=== PATIENT | male | born 1950 | race Caucasian/White ===

== ENCOUNTER 2021-08-07 00:50 | Emergency (ER) | payer MEDICARE, OTHER ==
[2021-08-07 02:03] VITALS: BP 137/85; PULSE 88; O2SAT 94
--- NOTE | 2021-08-07 02:18 | ERPHSYRPT ---
- History of Present Illness Time Seen by Provider: 08/07/21 01:10 Source: patient Exam Limitations: no limitations Patient Subjective Stated Complaint: pt states "I had a surgery on Sunday and my fingers are numb and achy ever since." Triage Nursing Assessment: pt came into the er via wheelchair; pt is axo x4; c/o pain and numbness to 4th and 5th digit of rt hand; pt states hx of rotator cuff repair on 08/02; pt sates 9/ pain to rt hand; pt has strong rt radial pulse; good cap refill to RUE; hypertension Physician History: This is a right-handed 71-year-old white male who underwent a rotator cuff surgery on his right shoulder on 08/02/2021. Postoperatively he was placed in a heavy orthopedic sling. Since that time he states he has noticed numbness in digits 4 and 5 on the right side. He only takes the orthopedic sling off to do the dressing change. Then it is right back on in place. Patient starts physical therapy and rehabilitation in the right shoulder tomorrow, 08/08/2021. Occurred: days ago (5) Method of Injury: other (Postoperative) Quality: constant, aching (Digits 4 and 5 on the right hand), other (Numbness on right hand digits 4 and 5) Severity of Pain-Max: moderate Severity of Pain-Current: mild (To moderate) Extremities Pain Location: 4th finger: right, 5th finger: right Modifying Factors: Improves With: other (Improves when sling is off) Associated Symptoms: none Allergies/Adverse Reactions: hydrocodone Allergy (Verified 08/07/21 01:00) Home Medications: Tramadol HCl 50 mg [Ultram 50 mg] 50 mg PO Q4H PRN 08/07/21 [History] ondansetron HCL [Zofran] 8 mg PO BID 08/07/21 [History] Hx Tetanus, Diphtheria Vaccination/Date Given: Yes Hx Influenza Vaccination/Date Given: No Hx Pneumococcal Vaccination/Date Given: No Travel Risk - International Travel Have you traveled outside of the country in past 3 weeks: No - Coronavirus Screening Are you exhibiting any of the following symptoms?: No Close contact with a COVID-19 positive Pt in past 14-21 Days: No - Vaccine Status Have you recieved a Covid-19 vaccination: No - Review of Systems Constitutional: No Symptoms Eyes: No Symptoms Ears, Nose, & Throat: No Symptoms Respiratory: No Symptoms Cardiac: No Symptoms Abdominal/Gastrointestinal: No Symptoms Genitourinary Symptoms: No Symptoms Musculoskeletal: Other (Numbness and achiness to right hand digits 4 and 5) Skin: No Symptoms Neurological: No Symptoms Psychological: No Symptoms Endocrine: No Symptoms Hematologic/Lymphatic: No Symptoms Immunological/Allergic: No Symptoms All Other Systems: Reviewed and Negative - Past Medical History Pertinent Past Medical History: No Neurological History: No Pertinent History ENT History: No Pertinent History Cardiac History: No Pertinent History Respiratory History: No Pertinent History Endocrine Medical History: No Pertinent History Musculoskeletal History: No Pertinent History GI Medical History: No Pertinent History History: No Pertinent History Psycho-Social History: No Pertinent History Male Reproductive Disorders: No Pertinent History - Past Surgical History Past Surgical History: Yes Neuro Surgical History: No Pertinent History Cardiac: No Pertinent History Respiratory: No Pertinent History Gastrointestinal: No Pertinent History Genitourinary: No Pertinent History Musculoskeletal: Orthopedic Surgery Male Surgical History: No Pertinent History Other Surgical History: rotator cuff repair to rt shoulder - Social History Smoking Status: Former smoker Exposure to second hand smoke: Yes Drug Use: none Patient Lives Alone: No - Nursing Vital Signs Nursing Vital Signs: Initial Vital Signs Temperature 97.9 F 08/07/21 01:01 Pulse Rate 92 H 08/07/21 01:01 Respiratory Rate 18 08/07/21 01:01 Blood Pressure 154/97 08/07/21 01:01 O2 Sat by Pulse Oximetry 93 L 08/07/21 01:01 Pain Scale Pain Intensity [Right Hand] 9 Pain Intensity 9 - Physical Exam General Appearance: no apparent distress, alert, anxiety Eyes, Ears, Nose, Throat Exam: normal ENT inspection, moist mucous membranes Neck Exam: normal inspection, non-tender, supple, full range of motion Cardiovascular/Respiratory Exam: chest non-tender, no respiratory distress Abdominal Exam: non-tender Back Exam: normal inspection, normal range of motion, No CVA tenderness, No vertebral tenderness Shoulder Exam: normal inspection, limited ROM (Patient is postoperative rotator cuff surgery. Bandage is in place. Bandages clean) Elbow/Forearm Exam: normal inspection, non-tender, no evidence of injury, limited ROM (Secondary to post operative rotator cuff surgery. With sling off patient has improvement in his range of motion and decreased numbness and achiness in digits 4 and 5 on the right side) Wrist Exam: normal inspection, non-tender, no evidence of injury, normal ROM Hand Exam: normal inspection, no evidence of injury, normal ROM Neuro/Tendon Exam: normal sensation, normal motor functions, normal tendon functions, responds to pain, no evidence tendon injury, No motor deficit, No sensory deficit Mental Status Exam: alert, oriented x 3, cooperative Skin Exam: normal color, warm, dry SpO2 Interpretation: borderline oxygenation SpO2: 94 O2 Delivery: Room Air - Course Nursing assessment & vital signs reviewed: Yes Ordered Tests: Active Orders 24 hr Category Date Time Status SHOULDER Stat Exams 08/07/21 Taken - Progress Progress: improved, pain not gone completely Progress Note: 08/07/21 02:18 Right shoulder postoperative x-ray shows no acute fracture or dislocation. The postsurgical film shows the joint to be intact. Counseled pt/family regarding: diagnosis, need for follow-up, rad results - Departure Departure Disposition: Home Clinical Impression: Ulnar nerve compression Condition: Stable Critical Care Time: No Referrals: TOSHIA ENRIQUE [Primary Care Provider] - Follow up/PCP as directed Additional Instructions: Keep the orthopedic sling in place when up and ambulating about. If sitting or laying down, remove the orthopedic sling flex and extend at the elbow. Take your medication as prescribed. Keep your physical therapy appointment tomorrow, 08/08/2021. Call your orthopedic surgeon tomorrow, 08/08/2021 if symptoms persist or worsen.
--- NOTE | 2021-08-07 07:28 | XRAY ---
Indication: Postoperative pain. Comparison: June 23, 2021. 3 view right shoulder again demonstrates osteopenia and moderate AC degenerative arthropathy. New tiny subcutaneous emphysema presumed postoperative. No other bony, articular, or soft tissue abnormalities. Comment: Preliminary interpretation made by C. No critical discrepancy.
== END 2021-08-07 02:30 | disposition home or self-care (01) ==
LOC: ED 00:50
DX: G56.21 Lesion of ulnar nerve, right upper limb (principal); X50.1XXA Overexertion from prolonged static or awkward postures, initial encounter; Z79.891 Long term (current) use of opiate analgesic; Z98.890 Other specified postprocedural states
CPT/HCPCS: 73030; 99283

== ENCOUNTER 2021-12-08 15:44 | Emergency (ER) | payer MEDICARE, OTHER ==
[2021-12-08] MEDS ORDERED: Zofran 4 MG/2 ML VIAL IV ONE (16:38)
[2021-12-08] MEDS ORDERED: GI COCKTAIL 45 ML (Maalox/Lidocaine) PO ONE (16:39)
[2021-12-08 16:44] LABS: Hematocrit 44.3 % (42-50); Hemoglobin 15.2 g/dL (12.5-18.0); Mean Cell Volume 90.4 fL (78-100); Mean Corpuscular Hgb Concent. 34.3 g/dL (32-36); Mean Platelet Volume 12.1 fL (7.5-11.0); Platelet Count 203 x10^3/uL (150-450); Red Cell Distribution Width 12.8 % (11.5-14.0); White Blood Count 7.8 x10^3/uL (4.0-10.5)
[2021-12-08 16:46] LABS: Appearance CLOUDY (CLEAR); Bilirubin NEGATIVE (NEGATIVE); Glucose NEGATIVE (NEGATIVE); Ketones TRACE (NEGATIVE); Ph 8.5 (5-6); RBC NEGATIVE Ery/ul (0-5)
[2021-12-08 16:47] LABS: Dipstick done @ ? MAIN LAB; Nitrite NEGATIVE (NEGATIVE); Protein,Urine Dip 30 (Negative); Urobilinogen 0.2 mg/dL (0-1)
--- NOTE | 2021-12-08 16:47 | ERPHSYRPT ---
- History of Present Illness Time Seen by Provider: 12/08/21 16:10 Historian: patient Exam Limitations: no limitations Patient Subjective Stated Complaint: C/O N/V and abdominal pain X 2 days Triage Nursing Assessment: Patient ambulated back to ED. He is hard of heaing, alert and oriented. Patient noted to be dry-heaving during assessment with no emesis noted. No SOB noted. Faint bowel sounds noted. Denies increased or changed pain with palpation. Pain is located mid abdomen above umbilicus. Physician History: Patient is a 71-year-old male presents to our ED for evaluation of nausea vomiting and epigastric pain x2 days. Pain described as a burning sensation that is constant. Patient states he ate tomatoes and worsens in symptoms. No trauma. No fever. Patient denies chest pain. Patient is nauseous at this time. Patient mildly tolerant of hearing. Patient states his gallbladder is still intact as is his appendix. Patient denies history of the same. Symptoms are mild to moderate in intensity. Patient voices no other complaints at this time. Portions of this note were created with voice recognition technology. There may be grammatical, spelling, punctuation or sound alike errors Timing/Duration: day(s) (2 days) Activities at Onset: none Quality: aching Abdominal Pain Onset Location: epigastric Pain Radiation: no radiation Severity of Pain-Max: moderate Severity of Pain-Current: mild Modifying Factors: Improves With: other (Pain worse after meals) Associated Symptoms: nausea, vomiting Previous symptoms: no prior history Allergies/Adverse Reactions: hydrocodone Allergy (Verified 12/08/21 15:59) Hx Tetanus, Diphtheria Vaccination/Date Given: Yes Hx Influenza Vaccination/Date Given: No Hx Pneumococcal Vaccination/Date Given: No Immunizations Up to Date: Yes Travel Risk - International Travel Have you traveled outside of the country in past 3 weeks: No - Coronavirus Screening Are you exhibiting any of the following symptoms?: Yes Symptoms: Vomiting/Diarrhea Close contact with a COVID-19 positive Pt in past 14-21 Days: No - Vaccine Status Have you recieved a Covid-19 vaccination: No - Review of Systems Constitutional: No Symptoms, No Fever, No Chills Eyes: No Symptoms Ears, Nose, & Throat: No Symptoms Respiratory: No Symptoms, No Cough, No Dyspnea Cardiac: No Symptoms, No Chest Pain, No Edema, No Syncope Abdominal/Gastrointestinal: No Symptoms, No Abdominal Pain, No Nausea, No Vomiting, No Diarrhea Genitourinary Symptoms: No Symptoms, No Dysuria Musculoskeletal: No Symptoms, No Back Pain, No Neck Pain Skin: No Symptoms, No Rash Neurological: No Symptoms, No Dizziness, No Focal Weakness, No Sensory Changes Psychological: No Symptoms Endocrine: No Symptoms Hematologic/Lymphatic: No Symptoms Immunological/Allergic: No Symptoms All Other Systems: Reviewed and Negative - Past Medical History Pertinent Past Medical History: No Neurological History: No Pertinent History ENT History: No Pertinent History Cardiac History: No Pertinent History Respiratory History: No Pertinent History Endocrine Medical History: No Pertinent History Musculoskeletal History: No Pertinent History GI Medical History: No Pertinent History History: No Pertinent History Psycho-Social History: No Pertinent History Male Reproductive Disorders: No Pertinent History - Past Surgical History Past Surgical History: Yes Neuro Surgical History: No Pertinent History Cardiac: No Pertinent History Respiratory: No Pertinent History Gastrointestinal: No Pertinent History Genitourinary: No Pertinent History Musculoskeletal: Orthopedic Surgery Male Surgical History: No Pertinent History Other Surgical History: rotator cuff repair to rt shoulder - Social History Smoking Status: Former smoker Exposure to second hand smoke: Yes Drug Use: none Patient Lives Alone: No - Nursing Vital Signs Nursing Vital Signs: Initial Vital Signs Temperature 97.7 F 12/08/21 16:00 Pulse Rate 83 12/08/21 16:00 Respiratory Rate 15 12/08/21 16:00 Blood Pressure 176/104 12/08/21 16:00 O2 Sat by Pulse Oximetry 94 L 12/08/21 16:00 Pain Scale Pain Intensity 6 - Physical Exam General Appearance: no apparent distress, alert Eye Exam: PERRL/EOMI, eyes nml inspection Ears, Nose, Throat Exam: normal ENT inspection, pharynx normal, moist mucous membranes Neck Exam: normal inspection, non-tender, supple, full range of motion Respiratory Exam: normal breath sounds, lungs clear, airway intact, No respiratory distress Cardiovascular Exam: regular rate/rhythm, normal heart sounds, normal peripheral pulses Gastrointestinal/Abdomen Exam: soft, tenderness (Epigastric tenderness to palpation.), No mass, No guarding, No ecchymosis, No splenomegaly, No bruit Back Exam: normal inspection, normal range of motion, No CVA tenderness, No vertebral tenderness Extremity Exam: normal inspection, normal range of motion, pelvis stable Neurologic Exam: alert, oriented x 3, cooperative, normal mood/affect, sensation nml, No motor deficits Skin Exam: normal color, warm, dry Lymphatic Exam: No adenopathy SpO2 Interpretation: normal SpO2: 94 O2 Delivery: Room Air - Course Nursing assessment & vital signs reviewed: Yes EKG Interpreted by Me: RATE (71), Sinus Rhythm, NORMAL AXIS, NORMAL INTERVALS - CT Exams Abdomen/Pelvis CT Interpretation: Tele-radiologist Report (Diffuse) Ordered Tests: Active Orders 24 hr Category Date Time Status EKG-ER Only STAT Care 12/08/21 16:38 Active IV Insertion STAT Care 12/08/21 16:38 Active ABDOMEN AND PELVIS W/0 CONTRAS [CT] Stat Exams 12/08/21 16:39 Completed CBC W DIFF Stat Lab 12/08/21 16:07 Completed CMP Stat Lab 12/08/21 16:38 Completed LIPASE Stat Lab 12/08/21 16:38 Completed Manual Differential NC Stat Lab 12/08/21 16:07 Completed TROPONIN Q4H Lab 12/08/21 16:45 Completed TROPONIN Q4H Lab 12/08/21 20:45 Ordered TROPONIN Q4H Lab 12/09/21 00:45 Ordered UA W/RFX CULTURE Stat Lab 12/08/21 16:00 Completed Medication Summary Discontinued Medications Generic Name Dose Route Start Last Admin Trade Name Freq PRN Reason Stop Dose Admin Al Hydrox/Mg Hydrox/Simethicone Confirm 12/08/21 16:55 Mag Hydrox/Al Hydrox/Simeth 30 Ml Udcup Administered 12/08/21 16:56 Dose 30 ml .ROUTE .STK-MED ONE Lidocaine HCl Confirm 12/08/21 16:55 Lidocaine Hcl 2% Viscous 15 Ml Udcup Administered 12/08/21 16:56 Dose 15 ml .ROUTE .STK-MED ONE Magnesium Hydroxide 45 ml 12/08/21 16:39 12/08/21 16:57 Mag Hydrx/Alum Hyd/Simeth/Lido 45 Ml Bottle PO 12/08/21 16:40 45 ml STAT ONE Administration Ondansetron HCl 4 mg 12/08/21 16:38 12/08/21 16:56 Ondansetron Hcl 4 Mg/2 Ml Vial IV 12/08/21 16:39 4 mg STAT ONE Administration Ondansetron HCl Confirm 12/08/21 16:53 Ondansetron Hcl 4 Mg/2 Ml Vial Administered 12/08/21 16:54 Dose 4 mg .ROUTE .STK-MED ONE Pantoprazole Sodium 40 mg 12/08/21 20:07 12/08/21 20:11 Pantoprazole 40 Mg Vial IV 12/08/21 20:08 40 mg STAT ONE Administration Pantoprazole Sodium Confirm 12/08/21 20:10 Pantoprazole 40 Mg Vial Administered 12/08/21 20:11 Dose 40 mg IV .STK-MED ONE Lab/Rad Data: Laboratory Result Diagrams 12/08/21 16:07 12/08/21 16:38 Laboratory Results 12/08/21 12/08/21 12/08/21 Range/Units 16:45 16:38 16:07 WBC 7.8 (4.0-10.5) x10^3/uL RBC 4.90 (4.1-5.6) x10^6/uL Hgb 15.2 (12.5-18.0) g/dL Hct 44.3 (42-50) % MCV 90.4 (78-100) fL MCH 31.0 (26-32) pg MCHC 34.3 (32-36) g/dL RDW 12.8 (11.5-14.0) % Plt Count 203 (150-450) x10^3/uL MPV 12.1 H (7.5-11.0) fL Segmented Neutrophils 70 H (36.-66.) % Band Neutrophils 4 H (0.0-2.0) % Lymphocytes (Manual) 13 L (24-44) % Monocytes (Manual) 8 (0.0-12.0) % Nucleated RBCs 1 % Atypical Lymphocytes 5 % Platelet Estimate NORMAL (NORMAL) RBC Morphology NORMAL Sodium 137 (137-145) mmol/L Potassium 3.8 (3.5-5.1) mmol/L Chloride 96 L (98-107) mmol/L Carbon Dioxide 32 H (22-30) mmol/L Anion Gap 12.9 (5-15) MEQ/L BUN 13 (9-20) mg/dL Creatinine 0.79 (0.66-1.25) mg/dL Estimated GFR > 60.0 ML/MIN Glucose 135 H (74-106) mg/dL Calcium 9.8 (8.4-10.2) mg/dL Total Bilirubin 0.70 (0.2-1.3) mg/dL AST 43 (17-59) U/L ALT 38 (0-50) U/L Alkaline Phosphatase 135 H (38-126) U/L Troponin I 0.013 (0.000-0.034) ng/mL Serum Total Protein 8.2 (6.3-8.2) g/dL Albumin 4.5 (3.5-5.0) g/dL Lipase 117 (23-300) U/L Urinalys Dipstick Clnc Urine Color (YELLOW) Urine Appearance (CLEAR) Urine pH (5-6) Ur Specific Noble (1.005-1.025) POC Urine Protein Conf (Negative) Urine Ketones (NEGATIVE) Urine Nitrite (NEGATIVE) Urine Bilirubin (NEGATIVE) Urine Urobilinogen (0-1) mg/dL Urine Leukocytes (NEGATIVE) Urine WBC (Auto) (0-5) /HPF Urine RBC (Auto) U Epithel Cells (Auto) Urine Bacteria (Auto) (NEGATIVE) /HPF Urine RBC (0-5) Neto/ul Amorphous Crystals (NEGATIVE) /HPF Urine Mucus (Auto) (NEGATIVE) /HPF Ur Culture Indicated? Urine Glucose (NEGATIVE) mg/dL 12/08/21 Range/Units 16:00 WBC (4.0-10.5) x10^3/uL RBC (4.1-5.6) x10^6/uL Hgb (12.5-18.0) g/dL Hct (42-50) % MCV (78-100) fL MCH (26-32) pg MCHC (32-36) g/dL RDW (11.5-14.0) % Plt Count (150-450) x10^3/uL MPV (7.5-11.0) fL Segmented Neutrophils (36.-66.) % Band Neutrophils (0.0-2.0) % Lymphocytes (Manual) (24-44) % Monocytes (Manual) (0.0-12.0) % Nucleated RBCs % Atypical Lymphocytes % Platelet Estimate (NORMAL) RBC Morphology Sodium (137-145) mmol/L Potassium (3.5-5.1) mmol/L Chloride (98-107) mmol/L Carbon Dioxide (22-30) mmol/L Anion Gap (5-15) MEQ/L BUN (9-20) mg/dL Creatinine (0.66-1.25) mg/dL Estimated GFR ML/MIN Glucose (74-106) mg/dL Calcium (8.4-10.2) mg/dL Total Bilirubin (0.2-1.3) mg/dL AST (17-59) U/L ALT (0-50) U/L Alkaline Phosphatase (38-126) U/L Troponin I (0.000-0.034) ng/mL Serum Total Protein (6.3-8.2) g/dL Albumin (3.5-5.0) g/dL Lipase (23-300) U/L Urinalys Dipstick Clnc MAIN LAB Urine Color YELLOW (YELLOW) Urine Appearance CLOUDY (CLEAR) Urine pH 8.5 (5-6) Ur Specific Noble 1.020 (1.005-1.025) POC Urine Protein Conf 30 (Negative) Urine Ketones TRACE (NEGATIVE) Urine Nitrite NEGATIVE (NEGATIVE) Urine Bilirubin NEGATIVE (NEGATIVE) Urine Urobilinogen 0.2 (0-1) mg/dL Urine Leukocytes NEGATIVE (NEGATIVE) Urine WBC (Auto) 3-5 (0-5) /HPF Urine RBC (Auto) Not Reportable U Epithel Cells (Auto) Not Reportable Urine Bacteria (Auto) FEW (NEGATIVE) /HPF Urine RBC NEGATIVE (0-5) Neto/ul Amorphous Crystals FEW (NEGATIVE) /HPF Urine Mucus (Auto) SLIGHT (NEGATIVE) /HPF Ur Culture Indicated? NO Urine Glucose NEGATIVE (NEGATIVE) mg/dL - Progress Progress: improved Progress Note: Case discussed with Dr. Carrillo. We will discharge patient home. Patient is requesting discharge. It appears patient is experiencing gastritis possible esophagitis possibly related to GERD. Patient received a GI cocktail which seemed to improve his pain for approximately an hour. Patient received a dose of Protonix in our ED. A prescription for the same was forwarded to patient's pharmacy. Patient will need an outpatient EGD. Dr. Carrillo will follow up for further evaluation and treatment. Plan of care discussed with patient. Patient agrees to follow-up with Dr. Carrillo within 48 hours for evaluation. Patient voices no other complaint or concerns at this time. Portions of this note were created with voice recognition technology. There may be grammatical, spelling, punctuation or sound alike errors 12/08/21 20:[address] Norma Will see patient in: hospital (observation) Counseled pt/family regarding: lab results, diagnosis, need for follow-up, rad results - Departure Departure Disposition: Home Clinical Impression: Right infrahilar lymphadenopathy, Epigastric pain, Hiatal hernia, Diverticulosis, Prostate enlargement, Nephrolithiasis, Osteopenia, Arthritis, lumbar spine, Levoscoliosis, Granulomatous disease Condition: Stable Critical Care Time: No Referrals: TOSHIA ENRIQUE [Primary Care Provider] - Follow up/PCP as directed Instructions: Severe Abdominal Pain, Adult (DC), Hiatal Hernia (DC) Additional Instructions: Discharge/Care Plan JEROMY MELENDEZ was seen on 12/08/21 in the Emergency Room. The patient was counseled regarding Diagnosis,Lab results, Imaging studies, need for follow up and when to return to the Emergency Room. Prescriptions given: Discharge Note I have spoken with the patient and/or caregivers. I have explained the patient's condition, diagnosis and treatment plan based on the information available to me at this time. I have answered the patient's and/or caregiver's questions and addressed any concerns. The patient and/or caregivers have as good understanding of the patient's diagnosis, condition and treatment plan as can be expected at this point. The vital signs have been stable. The patient's condition is stable and appropriate for discharge from the emergency department. The patient will pursue further outpatient evaluation with the primary care physician or other designated or consulting physician as outlined in the discharge instructions. The patient and/or caregivers are agreeable to this plan of care and follow-up instructions have been explained in detail. The patient and/or caregivers have received these instruction. The patient/and or caregivers are aware that any significant change in condition or worsening of symptoms should prompt an immediate return to this or the closest emergency department or call 911. Prescriptions: PANTOPRAZOLE 40 mg Tablet [Protonix 40MG Tablet] 40 mg PO DAILY 14 Days #14 tab
[2021-12-08 16:48] LABS: Amourphous Crystal FEW /HPF (NEGATIVE); Bacteria FEW /HPF (NEGATIVE); Mucus SLIGHT /HPF (NEGATIVE); Urine Cultured Indicated? NO
[2021-12-08 16:53] LABS: ALBUMIN 4.5 g/dL (3.5-5.0); ALKALINE PHOSPHATASE 135 U/L (38-126); ANION GAP 12.9 MEQ/L (5-15); BLOOD UREA NITROGEN 13 mg/dL (9-20); CHLORIDE 96 mmol/L (98-107); Calcium 9.8 mg/dL (8.4-10.2); Carbon Dioxide 32 mmol/L (22-30); Creatinine 1 0.79 mg/dL (0.66-1.25); EST GLOMERULAR FILTRATION RATE > 60.0 ML/MIN; Glucose 135 mg/dL (74-106); LIPASE 117 U/L (23-300); Potassium 3.8 mmol/L (3.5-5.1); SGOT/AST 43 U/L (17-59); SGPT/ALT 38 U/L (0-50); SODIUM 137 mmol/L (137-145); Total Protein 8.2 g/dL (6.3-8.2)
[2021-12-08] MEDS ORDERED: Zofran 4 MG/2 ML VIAL ONE (16:53)
[2021-12-08] MEDS ORDERED: MAALOX ES 30 ML UNIT DOSE ONE (16:55)
[2021-12-08] MEDS ORDERED: XYLOCAINE VISCOUS 2% 15 ML CUP ONE (16:55)
--- NOTE | 2021-12-08 17:16 | XRAY ---
Indication: Abdomen/epigastric pain. Multiple contiguous axial images obtained through the abdomen and pelvis without contrast. Comparison: None Study is degraded by respiration artifact throughout. Lung bases demonstrates mild subsegmental atelectasis/scarring. Heart not enlarged with chunky right infrahilar calcified nodes. Small fluid-filled hiatal hernia presumed from gastroesophageal reflux. Noncontrasted stomach and bowel loops appear nonobstructed with normal appendix. Scattered sigmoid diverticulosis without diverticulitis. Markedly enlarged prostate gland impresses on the base of the bladder. No free fluid/air. Right kidney demonstrates nonobstructing punctate calculus/calcification. Incidental tiny hepatic/splenic calcific granulomas. Remaining liver, gallbladder, pancreas, spleen, adrenal glands, kidneys, ureters, and bladder are unremarkable for noncontrast exam. Moderate scattered aortoiliac calcifications without AAA. Osseous structures demonstrates osteopenia, mild/moderate degenerative changes throughout the thoracolumbar spine, and mild levorotoscoliosis centered at L4. Impression: 1. Diffuse respiration artifact. 2. Small fluid-filled hiatal hernia presumed from gastroesophageal reflux. 3. Chronic findings including markedly enlarged prostate gland, nonobstructing right renal punctate calculus/calcification, arteriosclerotic disease, chronic bony findings, and old granulomatous disease.
[2021-12-08 17:38] LABS: ATYPICAL LYMPHS 5 %; BAND 4 % (0.0-2.0); Lymphocytes 13 % (24-44); Monocyte 8 % (0.0-12.0); Nucleated Red Blood Cell 1 %; Platelet Estimate NORMAL (NORMAL); Total Cells Counted 100
[2021-12-08 20:04] VITALS: BP 154/84; PULSE 91
[2021-12-08] MEDS ORDERED: PROTONIX 40 MG IV IV ONE ×2 (20:07→20:10)
[2021-12-08 20:08] VITALS: O2SAT 94
== END 2021-12-08 20:31 | disposition home or self-care (01) ==
LOC: ED 15:44
DX: R59.0 Localized enlarged lymph nodes (principal); R10.13 Epigastric pain; K44.9 Diaphragmatic hernia without obstruction or gangrene; K57.90 Diverticulosis of intestine, part unspecified, without perforation or abscess without bleeding; N40.0 Benign prostatic hyperplasia without lower urinary tract symptoms; N20.0 Calculus of kidney; M85.80 Other specified disorders of bone density and structure, unspecified site; M47.816 Spondylosis without myelopathy or radiculopathy, lumbar region; M41.9 Scoliosis, unspecified; D71 Functional disorders of polymorphonuclear neutrophils; R11.2 Nausea with vomiting, unspecified; Z28.310 Unvaccinated for COVID-19
CPT/HCPCS: 36000; 36415; 74176; 80053; 81015; 83690; 84484; 85025; 93005; 96374; 96375; 99284; J2405; A9270-GY

== ENCOUNTER 2022-01-08 16:59 | Emergency (ER) | payer MEDICARE, OTHER ==
--- NOTE | 2022-01-08 17:37 | ERPHSYRPT ---
- History of Present Illness Time Seen by Provider: 01/08/22 17:03 Source: patient Exam Limitations: no limitations Patient Subjective Stated Complaint: Pt states that he has blood in his urine that began this morning Triage Nursing Assessment: Pt brought self to the ER, hypertensive, denies pain, states that he has some dribbling after he urinates, first noticed the blood this morning, denies any back pain or urination pain, doesn't appear to be in any distress Physician History: 71-year-old male presented in the ER with chief complaint of gradually worsening hematuria since morning. Blood is mixed with urine. Denies any associated burning but does have some increased frequency. Denies flank pain, nausea vom iting fever or chills. Not taking any blood thinners. Timing/Duration: today, intermittent, gradual onset, worse Activites at Onset: none Quality: aching Onset Location: unknown Pain Radiation: none Modifying Factors: Improves With: nothing Associated Symptoms: urinary frequency Prior abdominal problems: none Sexual intercourse history: non-contributory Allergies/Adverse Reactions: hydrocodone Allergy (Verified 01/08/22 17:17) Home Medications: Famotidine 20 mg [Pepcid 20 MG] 20 mg PO BID 01/08/22 [History] Hx Tetanus, Diphtheria Vaccination/Date Given: Yes Hx Influenza Vaccination/Date Given: No Hx Pneumococcal Vaccination/Date Given: No Travel Risk - International Travel Have you traveled outside of the country in past 3 weeks: No - Coronavirus Screening Are you exhibiting any of the following symptoms?: No Close contact with a COVID-19 positive Pt in past 14-21 Days: No - Vaccine Status Have you recieved a Covid-19 vaccination: No - Past Medical History Pertinent Past Medical History: No Neurological History: No Pertinent History ENT History: No Pertinent History Cardiac History: No Pertinent History Respiratory History: No Pertinent History Endocrine Medical History: No Pertinent History Musculoskeletal History: No Pertinent History GI Medical History: No Pertinent History History: No Pertinent History Psycho-Social History: No Pertinent History Male Reproductive Disorders: No Pertinent History - Past Surgical History Past Surgical History: Yes Neuro Surgical History: No Pertinent History Cardiac: No Pertinent History Respiratory: No Pertinent History Gastrointestinal: No Pertinent History Genitourinary: No Pertinent History Musculoskeletal: Orthopedic Surgery Male Surgical History: No Pertinent History Other Surgical History: rotator cuff repair to rt shoulder - Social History Smoking Status: Former smoker Exposure to second hand smoke: Yes Drug Use: none Patient Lives Alone: No - Review of Systems Constitutional: No Symptoms Ears, Nose, & Throat: No Symptoms Respiratory: No Symptoms Cardiac: No Symptoms Abdominal/Gastrointestinal: No Symptoms Genitourinary Symptoms: Dysuria, Frequency, Hematuria Musculoskeletal: No Symptoms Skin: No Symptoms Neurological: No Symptoms Psychological: No Symptoms Endocrine: No Symptoms Hematologic/Lymphatic: No Symptoms Immunological/Allergic: No Symptoms - Nursing Vital Signs Nursing Vital Signs: Initial Vital Signs Temperature 98.1 F 01/08/22 17:10 Pulse Rate 79 01/08/22 17:10 Blood Pressure 176/80 01/08/22 17:10 O2 Sat by Pulse Oximetry 96 01/08/22 17:10 Pain Scale Pain Intensity 0 - Physical Exam General Appearance: no apparent distress, alert Eye Exam: PERRL/EOMI Ears, Nose, Throat Exam: normal ENT inspection Neck Exam: normal inspection, supple, full range of motion Respiratory Exam: normal breath sounds, lungs clear Cardiovascular Exam: regular rate/rhythm, normal heart sounds Gastrointestinal/Abdomen Exam: soft, normal bowel sounds, No tenderness Male Genital Exam: normal genitalia Back Exam: normal inspection, normal range of motion, No CVA tenderness Extremity Exam: normal inspection, normal range of motion Neurologic Exam: alert, oriented x 3, cooperative Skin Exam: normal color SpO2 Interpretation: normal SpO2: 96 O2 Delivery: Room Air Ordered Tests: Active Orders 24 hr Category Date Time Status ABDOMEN AND PELVIS W/0 CONTRAS [CT] Stat Exams 01/08/22 17:34 Taken CBC W DIFF Stat Lab 01/08/22 18:44 Completed CMP Stat Lab 01/08/22 17:34 Completed CULTURE,URINE Stat Lab 01/08/22 18:20 Received UA W/RFX CULTURE Stat Lab 01/08/22 18:20 Completed Medication Summary Generic Name Dose Route Start Last Admin Trade Name Freq PRN Reason Stop Dose Admin Ceftriaxone Sodium/Dextrose 2 g in 50 mls @ 100 mls/hr 01/08/22 19:56 Rocephin 2 Gm-D5w 50ml Bag IV 01/08/22 20:25 STAT STA Lab/Rad Data: Laboratory Result Diagrams 01/08/22 18:44 01/08/22 17:34 Laboratory Results 01/08/22 01/08/22 01/08/22 Range/Units 18:44 18:20 17:34 WBC 5.7 (4.0-10.5) x10^3/uL RBC 3.62 L (4.1-5.6) x10^6/uL Hgb 11.5 L (12.5-18.0) g/dL Hct 35.5 L (42-50) % MCV 98.1 (78-100) fL MCH 31.8 (26-32) pg MCHC 32.4 (32-36) g/dL RDW 13.6 (11.5-14.0) % Plt Count 192 (150-450) x10^3/uL MPV 10.8 (7.5-11.0) fL Gran % 61.1 (36.0-66.0) % Immature Gran % (Auto) 0.2 (0.00-0.4) % Nucleat RBC Rel Count 0.0 (0.00-0.1) % Eos # (Auto) 0.19 (0-0.5) x10^3/uL Immature Gran # (Auto) 0.01 (0.00-0.03) x10^3u/L Absolute Lymphs (auto) 1.50 (1.0-4.6) x10^3/uL Absolute Monos (auto) 0.48 (0.0-1.3) x10^3/uL Absolute Nucleated RBC 0.00 (0.00-0.01) x10^3u/L Lymphocytes % 26.3 (24.0-44.0) % Monocytes % 8.4 (0.0-12.0) % Eosinophils % 3.3 (0.00-5.0) % Basophils % 0.7 (0.0-0.4) % Absolute Granulocytes 3.49 (1.4-6.9) x10^3/uL Basophils # 0.04 (0-0.4) x10^3/uL Sodium 140 (137-145) mmol/L Potassium 3.9 (3.5-5.1) mmol/L Chloride 106 (98-107) mmol/L Carbon Dioxide 30 (22-30) mmol/L Anion Gap 8.2 (5-15) MEQ/L BUN 16 (9-20) mg/dL Creatinine 0.90 (0.66-1.25) mg/dL Estimated GFR > 60.0 ML/MIN Glucose 109 H (74-106) mg/dL Calcium 8.7 (8.4-10.2) mg/dL Total Bilirubin 0.50 (0.2-1.3) mg/dL AST 22 (17-59) U/L ALT 24 (0-50) U/L Alkaline Phosphatase 116 (38-126) U/L Serum Total Protein 6.8 (6.3-8.2) g/dL Albumin 4.0 (3.5-5.0) g/dL Urinalys Dipstick Clnc MAIN LAB Urine Color RED (YELLOW) Urine Appearance SLIGHTLY CLOUDY (CLEAR) Urine pH 7.5 (5-6) Ur Specific Monument 1.025 (1.005-1.025) POC Urine Protein Conf 30 (Negative) Urine Ketones NEGATIVE (NEGATIVE) Urine Nitrite NEGATIVE (NEGATIVE) Urine Bilirubin NEGATIVE (NEGATIVE) Urine Urobilinogen 1 (0-1) mg/dL Urine Leukocytes NEGATIVE (NEGATIVE) Urine WBC (Auto) 0-2 (0-5) /HPF Urine RBC (Auto) >101 (0-2) /HPF U Epithel Cells (Auto) NONE (FEW) /HPF Urine Bacteria (Auto) NONE (NEGATIVE) /HPF Urine RBC LARGE (0-5) Neto/ul Unidentified Crystals 25-50 (NEGATIVE) /HPF Other Casts (Auto) 5-10 (NEGATIVE) /LPF Ur Culture Indicated? YES Urine Glucose NEGATIVE (NEGATIVE) mg/dL - Progress Progress: unchanged Progress Note: 01/08/22 20:00 Patient has stable H&H. Have blood in urine. Stable renal functions. I believe patient has cystitis and some element of prostatitis per CAT scan. Given a dose of Rocephin in here and will continue with Cipro to go home. Outpatient urology follow-up recommended. Counseled pt/family regarding: lab results, diagnosis, need for follow-up, rad results - Departure Departure Disposition: Home Clinical Impression: Hemorrhagic cystitis, Enlarged prostate Condition: Stable Critical Care Time: No Referrals: TOSHIA ENRIQUE [Primary Care Provider] - Follow up/PCP as directed (1-2 days for reevaluation) JAYASHREE MUNSON [COURTESY STAFF] - Follow up/PCP as directed (Call tomorrow for appointment for reevaluation) Instructions: Blood in the Urine (Hematuria) in Adults Additional Instructions: Plenty of fluids. Follow-up with primary care and urology for reevaluation. Return to ER for any worsening. Prescriptions: Ciprofloxacin [Cipro 500 MG] 500 mg PO BID #14 tablet
[2022-01-08 18:27] VITALS: BP 147/82; PULSE 54
[2022-01-08 18:47] LABS: Absolute Neutrophil Ct (ANC) 3.49 x10^3/uL (1.4-6.9); Basophil (Absolute #) 0.04 x10^3/uL (0-0.4); Eosinophil % 3.3 % (0.00-5.0); Eosinophil (Absolute #) 0.19 x10^3/uL (0-0.5); Hematocrit 35.5 % (42-50); Hemoglobin 11.5 g/dL (12.5-18.0); Lymphocytes % 26.3 % (24.0-44.0); Mean Cell Volume 98.1 fL (78-100); Mean Corpuscular Hemoglobin 31.8 pg (26-32); Mean Corpuscular Hgb Concent. 32.4 g/dL (32-36); Mean Platelet Volume 10.8 fL (7.5-11.0); Monocyte (Absolute #) 0.48 x10^3/uL (0.0-1.3); Monocytes % 8.4 % (0.0-12.0); Neutrophil % 61.1 % (36.0-66.0); Platelet Count 192 x10^3/uL (150-450); Red Blood Count 3.62 x10^6/uL (4.1-5.6); Red Cell Distribution Width 13.6 % (11.5-14.0); White Blood Count 5.7 x10^3/uL (4.0-10.5)
[2022-01-08 19:08] LABS: ALKALINE PHOSPHATASE 116 U/L (38-126); ANION GAP 8.2 MEQ/L (5-15); BLOOD UREA NITROGEN 16 mg/dL (9-20); CHLORIDE 106 mmol/L (98-107); Calcium 8.7 mg/dL (8.4-10.2); Carbon Dioxide 30 mmol/L (22-30); EST GLOMERULAR FILTRATION RATE > 60.0 ML/MIN; Glucose 109 mg/dL (74-106); Potassium 3.9 mmol/L (3.5-5.1); SGOT/AST 22 U/L (17-59); SGPT/ALT 24 U/L (0-50); SODIUM 140 mmol/L (137-145); Total Protein 6.8 g/dL (6.3-8.2)
[2022-01-08 19:13] LABS: WBC 0-2 /HPF (0-5)
[2022-01-08 19:14] LABS: Appearance SLIGHTLY CLOUDY (CLEAR); Bilirubin NEGATIVE (NEGATIVE); Dipstick done @ ? MAIN LAB; Glucose NEGATIVE (NEGATIVE); Ketones NEGATIVE (NEGATIVE); Nitrite NEGATIVE (NEGATIVE); Ph 7.5 (5-6); Protein,Urine Dip 30 (Negative); RBC LARGE Ery/ul (0-5); Specific Gravity 1.025 (1.005-1.025); Urobilinogen 1 mg/dL (0-1)
[2022-01-08 19:16] LABS: Crystals Unidentified 25-50 /HPF (NEGATIVE); RBC >101 /HPF (0-2)
[2022-01-08 19:17] LABS: Urine Cultured Indicated? YES
[2022-01-08] MEDS ORDERED: ROCEPHIN 2 Gm-D5w 50ML BAG** 2 G/50 ML IVPB IV STA (19:56)
[2022-01-08 20:03] VITALS: O2SAT 96
[2022-01-08] MEDS ORDERED: ROCEPHIN 2 Gm-D5w 50ML BAG** 2 G/50 ML IVPB IV ONE (20:07)
--- NOTE | 2022-01-09 21:07 | XRAY ---
Exam: CT of the abdomen and pelvis without IV contrast from 01/08/2022. CTDI: 3.59 mGy Comparison: CT of the abdomen and pelvis without IV contrast from 12/08/2021. Indication: 71-year-old male states he is having hematuria since this morning; no history of prior abdominal/pelvis surgery. Technique: Non-IV contrast axial images were obtained through the abdomen and pelvis. Reconstructed coronal and sagittal images were created and reviewed. No oral contrast was given. Findings: The visualized lung bases reveal minimal bibasilar posterior compression atelectasis changes, right greater than left. There appears to be a 3 mm to 4 mm subpleural soft tissue nodule at the anterior lateral aspect of the right lung base on image #1 which in retrospect is unchanged from 12/08/2021. I again note a small hiatal hernia. The liver is of normal size and reveals a few calcified granulomas. No intrahepatic biliary duct distention is seen. The gallbladder is partially contracted and reveals no calcifications within it. The spleen is of normal size and reveals multiple calcified granulomas consistent with prior granulomatous exposure. The pancreas is remarkable for a punctate calcification at the posterior lateral margin of the pancreatic head representing no change. No pancreatic duct distention is seen. The adrenal glands are of normal size and configuration. The kidneys are of average size. No hydronephrosis is seen. There is a punctate nonobstructing calcification within the medial aspect of the upper pole of the right kidney representing no change. I believe there is a tiny cortical calcification within the lower pole of the left kidney representing no change. The ureters appear of average diameter and reveal no definite ureterolith. No urinary bladder stone is seen. Atherosclerotic vascular calcification is seen within portions of the abdominal aorta, iliac arteries, and common femoral arteries representing no change. No abdominal aortic aneurysm or abnormal retroperitoneal lymphadenopathy is seen. There is no free intraperitoneal air. There is minimal protrusion of intra-abdominal fat into the subcutaneous fat at the level of the umbilicus on sagittal images #93 through #97. No bowel containing ventral hernia is seen. Minimal motion artifact is seen. The bowel is not distended. Scattered stool is seen within the right hemicolon and sigmoid colon. Moderate sigmoid colon diverticulosis without evidence of diverticulitis is seen. The appendix appears unremarkable within the right lower quadrant. The urinary bladder appears unremarkable. There is marked prostatomegaly with an AP diameter of 6.1 cm and a width of 6.4 cm on axial image #70. This is unchanged. There is no free intraperitoneal fluid. The pelvic sidewalls appear unremarkable. Incidentally, there appears to be a 5.9 cm x 3.0 cm oval-shaped lipoma within the left left gluteus pan muscle on coronal image #108. This is unchanged. There is a mild rotary levoscoliosis centered at L3-L4. Moderate multilevel degenerative disc disease is seen within the lower thoracic spine and throughout the lumbar spine with only relative sparing of L3-L4 and L5-S1. There is minimal retrolisthesis of L1 with respect to L2 and L2 with respect to L3 which I believe is secondary to arthritic changes. An acute fracture or traumatic AP subluxation is not seen. There is marked bilateral facet joint osteoarthritis at L5-S1 and moderate bilateral L4-L5 facet joint arthropathy, left greater than right. Impression: 1. I do not believe there has been a significant interval change as compared to the prior CT from 12/08/2001. I again identify a punctate nonobstructing calcification within the medial aspect of the upper pole of the right kidney. There is also a punctate cortical calcification at the lower pole of the left kidney. No hydronephrosis or evidence of ureteral stone is seen. No urinary bladder stone is seen. 2. Small hiatal hernia, evidence of previous granulomatous disease/exposure, moderate sigmoid colon diverticulosis without diverticulitis, incidental left gluteus pan lipoma, and marked prostatomegaly are again seen. 3. Moderate atherosclerotic vascular disease and skeletal findings, as discussed above, are seen. This appears unchanged. 4. No other acute process is seen within the abdomen or pelvis.
== END 2022-01-08 20:52 | disposition home or self-care (01) ==
LOC: ED 16:59
DX: N30.91 Cystitis, unspecified with hematuria (principal); N40.0 Benign prostatic hyperplasia without lower urinary tract symptoms; R35.0 Frequency of micturition; Z28.310 Unvaccinated for COVID-19
CPT/HCPCS: 36000; 36415; 74176; 80053; 81015; 85025; 87086; 96365; 99284; J0696